=== PATIENT | female | born 1990 | race Caucasian/White ===

== ENCOUNTER 2016-09-08 20:44 | Emergency (ER) | payer BC ==
[2016-09-08 21:03] VITALS: RESP 20; TEMP 97.3; O2SAT 100
[2016-09-08 21:22] LABS: APPEARANCE,URINE Slightly Cloudy; BILIRUBIN,URINE NEGATIVE (NEGATIVE); COLOR,URINE Yellow; GLUCOSE, URINE (UA) NEGATIVE (NEGATIVE); KETONES,URINE NEGATIVE (NEGATIVE); LEUKOCYTE ESTERASE ,URINE 2+ (NEGATIVE); NITRATE,URINE POSITIVE (NEGATIVE); OCCULT BLOOD,URINE 2+ (NEG-TRACE); UROBILINOGEN,URINE 0.2 (0.2-1.0 EU)
[2016-09-08 21:33] LABS: RBC,URINE 15-25 (0-3AV/HPF)
[2016-09-08] MEDS ORDERED: SULFAMETHOXAZOLE/TRIMETHOPRI 800/160 MG PO ONE (21:41)
[2016-09-08] MEDS ORDERED: SULFAMETHOXAZOLE/TRIMETHOPRI 800/160 MG ONE (21:43)
[2016-09-08 22:09] VITALS: BP 128/67; PULSE 106
== END 2016-09-08 21:58 | disposition home or self-care (01) ==
LOC: ED 20:44
DX: N20.0 Calculus of kidney (principal); R31.9 Hematuria, unspecified
CPT/HCPCS: 81001; 87077; 87088; 87186; 99282

== ENCOUNTER 2016-09-09 17:16 | Inpatient (IN) | payer BC ==
[2016-09-09] MEDS ORDERED: LEVOFLOXACIN 25 MG/ML 500 MG in SODIUM CHLORIDE 0.9% 100 ML 100 ML IV ONE (17:57)
[2016-09-09] MEDS ORDERED: PROMETHAZINE HYDROCHLORIDE 25 MG/ML SOL IV PRN (17:59)
[2016-09-09] MEDS ORDERED: PANTOPRAZOLE SODIUM 40 MG/10 ML PDS IV ONE (17:59)
[2016-09-09] MEDS ORDERED: LEVOFLOXACIN 25 MG/ML SOL IV ONE (18:34)
[2016-09-09] MEDS: DEXTROSE/SALINE 0.45/KCL 20MEQ 1,000 ML/1,000 ML SOL IV SCH (19:58)
[2016-09-09] MEDS: KETOROLAC TROMETHAMINE 30 MG/ML SOL IV PRN (22:51)
[2016-09-09] MEDS: ONDANSETRON 4 MG ODT BU PRN (22:51)
[2016-09-10] MEDS: KETOROLAC TROMETHAMINE 30 MG/ML SOL IV PRN ×5 (02:46→19:42)
[2016-09-10] MEDS: DEXTROSE/SALINE 0.45/KCL 20MEQ 1,000 ML/1,000 ML SOL IV SCH ×4 (02:46→23:20)
[2016-09-10 07:19] LABS: BASOPHILS % (AUTO) 0 % (0-3); EOSINOPHILS % (AUTO) 1 % (0-9); HEMATOCRIT 30 % (35-47); MEAN CORPUSCULAR HGB CONC 34.7 gm/dl (32.0-36.0); MEAN CORPUSCULAR VOLUME 87 fL (81-99); MONOCYTES % (AUTO) 10.2 % (0-12); NEUTROPHILS % (AUTO) 76.9 % (37-80)
[2016-09-10 07:36] LABS: ALBUMIN 2.7 gm/dl (3.4-5.0); CALCIUM 7.7 mg/dl (8.5-10.1); POTASSIUM 3.7 mMol/L (3.5-5.1)
[2016-09-10] MEDS ORDERED: MAGNESIUM HYDROXIDE 30 ML SUS PO PRN (11:14)
[2016-09-10] MEDS: SULFAMETHOXAZOLE/TRIMETHOPRI 800/160 MG PO SCH ×2 (13:12→21:07)
[2016-09-10] MEDS: ONDANSETRON 4 MG ODT BU PRN ×2 (14:45→22:38)
[2016-09-10] MEDS: ACETAMINOPHEN 325 MG PO PRN (15:08)
[2016-09-10] MEDS: PHENAZOPYRIDINE HYDROCHLORID 100 MG TAB PO SCH ×3 (15:08→21:07)
[2016-09-10] MEDS: HYDROMORPHONE HCL 2 MG/ML 1 ML SOL IV PRN (22:34)
[2016-09-10] MEDS: SODIUM CHLORIDE 0.9% FLUSH 10 ML SOL IV PRN (22:38)
[2016-09-11] MEDS: ACETAMINOPHEN 325 MG PO PRN ×2 (00:46→11:15)
[2016-09-11] MEDS: KETOROLAC TROMETHAMINE 30 MG/ML SOL IV PRN (01:48)
[2016-09-11] MEDS: DEXTROSE/SALINE 0.45/KCL 20MEQ 1,000 ML/1,000 ML SOL IV SCH ×2 (06:15→12:41)
[2016-09-11] MEDS: HYDROMORPHONE HCL 2 MG/ML 1 ML SOL IV PRN ×3 (06:23→12:37)
[2016-09-11] MEDS: SULFAMETHOXAZOLE/TRIMETHOPRI 800/160 MG PO SCH ×2 (09:41→21:33)
[2016-09-11] MEDS: PHENAZOPYRIDINE HYDROCHLORID 100 MG TAB PO SCH ×3 (09:42→21:33)
[2016-09-11] MEDS: ONDANSETRON 4 MG ODT BU PRN ×3 (10:32→21:33)
[2016-09-11] MEDS: SODIUM CHLORIDE 0.9% FLUSH 10 ML SOL IV PRN (10:33)
[2016-09-11] MEDS ORDERED: IBUPROFEN 600 MG TAB PO PRN (16:11)
[2016-09-11] MEDS ORDERED: TRAMADOL HYDROCHLORIDE 50 MG TAB PO PRN (16:11)
[2016-09-11 16:43] VITALS: RESP 18
[2016-09-12] MEDS ORDERED: DEXTROSE/SALINE 0.45/KCL 20MEQ 1,000 ML/1,000 ML SOL IV SCH
[2016-09-12 08:32] VITALS: BP 112/71; PULSE 63; TEMP 97.5; O2SAT 99
[2016-09-12] MEDS: PHENAZOPYRIDINE HYDROCHLORID 100 MG TAB PO SCH (08:38)
[2016-09-12] MEDS: SULFAMETHOXAZOLE/TRIMETHOPRI 800/160 MG PO SCH (08:38)
[2016-09-12] MEDS: ONDANSETRON 4 MG ODT BU PRN (10:08)
[2016-09-12] MEDS: ACETAMINOPHEN 325 MG PO PRN (10:10)
== END 2016-09-12 11:25 | disposition home or self-care (01) | DRG 463 ==
LOC: UNDOADMOB 17:17 → INTOOBSV 17:17 → OBSVTOIN 17:17 → ACUTE CARE 17:17 → OBSVTOIN 09-11 15:50 → UNDOADMOB 09-11 15:50 → INTOOBSV 09-11 15:50 → ACUTE CARE 09-11 15:50 → UNDODISIN 09-12 11:25
PROVIDERS: ADMIT Family Medicine; ATTEND Family Medicine
DX: N10 Acute pyelonephritis (principal); N20.0 Calculus of kidney; Z87.442 Personal history of urinary calculi
CPT/HCPCS: 36415; 74176; 80053; 82150; 84703; 85025; J1170; J1885; J1956; J2550

== ENCOUNTER 2016-12-25 20:21 | Observation (INO) | payer BC ==
[2016-12-25] MEDS ORDERED: SODIUM CHLORIDE 0.9% FLUSH 10 ML SOL IV PRN (20:40)
[2016-12-25] MEDS ORDERED: ONDANSETRON HCL 4 MG/2 ML SOL IV ONE (20:44)
[2016-12-25] MEDS ORDERED: HYDROMORPHONE 1 MG/ML SYRINGE IV ONE (20:44)
[2016-12-25] MEDS ORDERED: SODIUM CHLORIDE 0.9% 1000ML 1,000 ML IV SCH ×2 (20:45→23:00)
[2016-12-25] MEDS ORDERED: HYDROMORPHONE HCL 2 MG/ML SOL ONE ×2 (20:45→22:52)
[2016-12-25] MEDS ORDERED: ONDANSETRON HCL 4 MG/2 ML SOL ONE (20:46)
[2016-12-25 20:59] LABS: BASOPHILS % (AUTO) 1 % (0-3); EOSINOPHILS % (AUTO) 1 % (0-9); HEMATOCRIT 33 % (35-47); MEAN CORPUSCULAR HGB CONC 35.5 gm/dl (32.0-36.0); MEAN CORPUSCULAR VOLUME 84 fL (81-99); MONOCYTES % (AUTO) 6.5 % (0-12); NEUTROPHILS % (AUTO) 53.5 % (37-80)
[2016-12-25 21:06] LABS: POTASSIUM 3.4 mMol/L (3.5-5.1)
[2016-12-25 21:10] LABS: CALCIUM 8.6 mg/dl (8.5-10.1)
[2016-12-25 21:41] LABS: APPEARANCE,URINE Slightly Cloudy; BILIRUBIN,URINE NEGATIVE (NEGATIVE); COLOR,URINE Yellow; GLUCOSE, URINE (UA) NEGATIVE (NEGATIVE); KETONES,URINE NEGATIVE (NEGATIVE); LEUKOCYTE ESTERASE ,URINE 1+ (NEGATIVE); NITRATE,URINE NEGATIVE (NEGATIVE); OCCULT BLOOD,URINE 2+ (NEG-TRACE); PH,URINE 6.5; UROBILINOGEN,URINE 0.2 (0.2-1.0 EU)
[2016-12-25 21:48] LABS: RBC,URINE 30-35 (0-3AV/HPF)
[2016-12-25] MEDS ORDERED: HYDROMORPHONE HCL 2 MG/ML SOL IV ONE (22:50)
[2016-12-25] MEDS ORDERED: APAP/OXYCODONE 325/5 TAB PO PRN (23:18)
[2016-12-25] MEDS ORDERED: ONDANSETRON HCL 4 MG TAB PO PRN (23:20)
[2016-12-26 00:34] VITALS: RESP 14; TEMP 98.1
[2016-12-26] MEDS: HYDROMORPHONE 1 MG/ML SYRINGE IV PRN ×2 (01:02→05:12)
[2016-12-26] MEDS ORDERED: ONDANSETRON HCL 4 MG/2 ML SOL IV PRN (02:08)
[2016-12-26 08:32] VITALS: BP 118/64; PULSE 73; O2SAT 100
== END 2016-12-26 09:35 | disposition home or self-care (01) ==
LOC: ED 20:21 → ACUTE CARE 23:15
PROVIDERS: ADMIT Family Medicine; ATTEND Family Medicine
DX: N20.0 Calculus of kidney (principal); Z87.442 Personal history of urinary calculi
CPT/HCPCS: 99284 ×3; 80048; 81001; 82365; 85025; 87077; 87088; 87186; J1170 ×3; J2405 ×2; 36415; 96365; 96374; 96375; 99218